=== PATIENT | female | born 1985 | race Caucasian/White ===

== ENCOUNTER 2019-01-06 12:43 | Emergency (ER) | payer MEDICAID, OTHER ==
[~2019-01-06] VITALS: Ht 175.3 cm; Wt 87.1 kg
[2019-01-06 13:51] VITALS: BP 129/78
== END 2019-01-06 15:18 | disposition home or self-care (01) ==
LOC: ER 12:43 → EDBD 12:43 → ER 15:18
DX: S93.402A Sprain of unspecified ligament of left ankle, initial encounter (principal); F17.210 Nicotine dependence, cigarettes, uncomplicated; F12.10 Cannabis abuse, uncomplicated; W17.81XA Fall down embankment (hill), initial encounter; Y93.89 Activity, other specified; Y92.828 Other wilderness area as the place of occurrence of the external cause; Y99.8 Other external cause status
CPT/HCPCS: 29515; 73610